=== PATIENT | female | born 1945 | race Caucasian/White ===

== ENCOUNTER 2016-08-22 11:02 | Inpatient (IN) | payer OTHER, MEDICARE ==
[~2016-08-22] VITALS: Ht 170.2 cm; Wt 52.3 kg
[2016-08-22] MEDS ORDERED: ARIP2 PO (11:57)
[2016-08-22] MEDS ORDERED: PRED10 PO (11:57)
[2016-08-22] MEDS ORDERED: ADV250 IH (11:57)
[2016-08-22] MEDS ORDERED: DONE5TAB PO (11:57)
[2016-08-22] MEDS ORDERED: BUSP15 PO (11:57)
[2016-08-22] MEDS ORDERED: FURO20 PO (11:57)
[2016-08-22] MEDS ORDERED: TIOT185 IH (11:57)
[2016-08-22] MEDS ORDERED: MIRT15 PO (11:57)
[2016-08-22] MEDS ORDERED: POTA8CAP17 PO (11:57)
[2016-08-22] MEDS ORDERED: MEMA5 PO ×2 (11:57)
[2016-08-22] MEDS ORDERED: ALBU8HFA4 IH (11:57)
[2016-08-22] MEDS ORDERED: AZIT250T6 PO (11:57)
[2016-08-22] MEDS: ALBUTEROL SULFATE 2.5 MG/0.5 ML NEB SOLUTION NEB ONE ×2 (12:12→12:15)
[2016-08-22] MEDS: IPRATROPIUM BROMIDE 0.5 MG/2.5 ML NEB SOLUTION NEB ONE ×2 (12:12→12:15)
[2016-08-22] MEDS ORDERED: SODIUM CHLORIDE 0.9% 1,000 ML IV ONE ×2 (12:30→13:45)
[2016-08-22] MEDS ORDERED: ACETAMINOPHEN 1000 MG/ISO-OSM 100 ML IV ONE (12:30)
[2016-08-22 12:50] LABS: BASOPHILS % (AUTO) 0.2 % (0.0-2.0); EOSINOPHILS % (AUTO) 0 % (1.0-6.0); LYMPHOCYTES # (AUTO) 0.6 K/uL (1.0-4.8); LYMPHOCYTES % (AUTO) 2.4 % (22.0-44.0); MEAN CORPUSCULAR HEMOGLOBIN 27.9 pg (26.0-34.0); MEAN CORPUSCULAR HGB CONC 32.5 G/dL (31.0-37.0); MEAN CORPUSCULAR VOLUME 86 fL (80-100); MONOCYTES # (AUTO) 1.6 K/uL (0.1-1.0); MONOCYTES % (AUTO) 6.2 % (2.0-9.0); NEUTROPHILS # (AUTO) 24.2 K/uL (1.8-7.7); NEUTROPHILS % (AUTO) 91.2 % (40.0-70.0); PLATELET COUNT (AUTO) 293 K/uL (150-450); RED BLOOD CELL COUNT(AUTO) 4.31 MIL/uL (4.00-5.20); RED CELL DISTRIBUTION WIDTH 14.8 % (11.5-14.5); WHITE BLOOD COUNT (AUTO) 26.6 K/uL (4.5-11.0)
[2016-08-22 12:58] LABS: ANION GAP 11 mmol/L (8-16); CALCIUM, TOTAL 8.2 mg/dL (8.8-10.5); CARBON DIOXIDE 24 mmol/L (22-29); CHLORIDE 100 mmol/L (98-107); CREATININE 0.98 mg/dL (0.60-1.30); GLOMERULAR FILTR. RATE CALC 56 mL/min (>60); POTASSIUM 3.7 mmol/L (3.5-5.1); SODIUM SERUM 135 mmol/L (136-145); UREA NITROGEN, BLOOD 20 mg/dL (7-18)
[2016-08-22 13:09] LABS: B-TYPE NATRIURETIC PEPTIDE 561 pg/mL (0-100)
[2016-08-22 13:27] LABS: ALANINE AMINOTRANSFERASE 25 U/L (12-78); ALBUMIN 2.7 g/dL (3.4-5.0); ASPARTATE AMINOTRANSFERASE 26 U/L (15-37); BILIRUBIN,TOTAL 0.6 mg/dL (0.1-1.0); CREATINE KINASE MB 2.3 ng/mL (0-5); CREATINE KINASE, TOTAL 144 U/L (26-192)
[2016-08-22 13:54] LABS: PROCALCITONIN (PCT) 8.14 ng/mL (<0.50)
[2016-08-22] MEDS ORDERED: PIPERACILLIN/TAZO 3.375 GM/D5W 50 ML IV ONE (14:00)
[2016-08-22] MEDS ORDERED: LEVOFLOXACIN 500 MG/D5% WATER 100 ML IV ONE (14:00)
[2016-08-22 14:20] LABS: INFLUENZA TYPE B NEGATIVE FOR TYPE B (NEGATIVE)
[2016-08-22 14:49] LABS: ADD UA MICROSCOPIC YES; APPEARANCE,URINE CLOUDY (CLEAR); GLUCOSE, URINE (UA) NEGATIVE (NEGATIVE); KETONES,URINE TRACE mg/dL (NEGATIVE); LEUKOCYTE ESTERASE ,URINE SMALL (NEGATIVE); OCCULT BLOOD,URINE NEGATIVE (NEGATIVE); PH,URINE 5.5 (5.0-8.0); PROTEIN,URINE SEE CONFIRM (NEGATIVE)
[2016-08-22 14:55] LABS: SULFOSALICYLIC ACID,URINE 1+ (Negative)
[2016-08-22 14:56] LABS: RBC,URINE 0-2 /HPF (0-2); RENAL EPITHELIAL CELLS,URINE Few /LPF (None Seen); SQUAMOUS EPITHELIAL CELL,UR Few /LPF (None Seen)
[2016-08-22] MEDS ORDERED: ALBUTEROL SULFATE 2.5 MG/0.5 ML NEB SOLUTION NEB PRN (16:15)
[2016-08-22] MEDS ORDERED: OxyCODONE HCL/ACETAMINOPHEN 5-325 MG TABLET PO PRN (16:15)
[2016-08-22] MEDS: CefTRIAXone 1 GM/DEXTROSE 50 ML IV SCH (16:50)
[2016-08-22] MEDS: AZITHROMYCIN 500 MG/NS 250 ML IV SCH (17:18)
[2016-08-22] MEDS: ACETAMINOPHEN 325 MG TABLET PO PRN ×2 (18:55→23:46)
[2016-08-22] MEDS ORDERED: 0.9% SODIUM CHLORIDE 5 ML NEB SOLUTION NEB ONE (20:32)
[2016-08-22 20:34] VITALS: BP 109/74
[2016-08-22] MEDS: ALBUTEROL SULFATE 2.5 MG/0.5 ML NEB SOLUTION NEB SCH (20:35)
[2016-08-22] MEDS: MEMANTINE HCL 5 MG TABLET PO SCH (20:51)
[2016-08-22] MEDS ORDERED: MEMANTINE HCL 5 MG TABLET PO SCH (21:00)
[2016-08-22] MEDS ORDERED: INFLUENZA VIRUS VACCINE QVS 2016-17 (3YR+)/PF 60 MCG/0.5 ML SYRINGE IM ONE (23:30)
[2016-08-22 23:38] VITALS: BP 111/72
[2016-08-22] MEDS: HEPARIN SODIUM,PORCINE 5,000 UNITS/ML VIAL SQ SCH (23:46)
[2016-08-23] MEDS ORDERED: 0.9% SODIUM CHLORIDE 5 ML NEB SOLUTION NEB ONE ×2 (01:37→19:15)
[2016-08-23] MEDS: ALBUTEROL SULFATE 2.5 MG/0.5 ML NEB SOLUTION NEB SCH ×4 (03:02→19:39)
[2016-08-23 04:52] VITALS: BP 99/49
[2016-08-23 08:27] VITALS: BP 115/63
[2016-08-23] MEDS ORDERED: BusPIRone HCL 15 MG TABLET PO SCH (09:00)
[2016-08-23] MEDS ORDERED: DONEPEZIL HCL 5 MG TABLET PO SCH (09:00)
[2016-08-23] MEDS ORDERED: ARIPiprazole 2 MG TABLET PO SCH (09:00)
[2016-08-23] MEDS ORDERED: MIRTAZAPINE 15 MG TABLET PO SCH (09:00)
[2016-08-23] MEDS: BusPIRone HCL 15 MG TABLET PO SCH (09:21)
[2016-08-23] MEDS: MEMANTINE HCL 5 MG TABLET PO SCH ×2 (09:21→21:56)
[2016-08-23] MEDS: HEPARIN SODIUM,PORCINE 5,000 UNITS/ML VIAL SQ SCH ×3 (09:22→23:43)
[2016-08-23] MEDS: MIRTAZAPINE 15 MG TABLET PO SCH (09:22)
[2016-08-23] MEDS: FUROSEMIDE 20 MG TABLET PO SCH (09:22)
[2016-08-23] MEDS: ARIPiprazole 2 MG TABLET PO SCH (09:22)
[2016-08-23] MEDS: DONEPEZIL HCL 5 MG TABLET PO SCH (09:22)
[2016-08-23] MEDS: PANTOPRAZOLE SODIUM 40 MG DR TABLET PO SCH (09:22)
[2016-08-23 11:06] VITALS: BP 102/47
[2016-08-23] MEDS: ACETAMINOPHEN 325 MG TABLET PO PRN (12:25)
[2016-08-23] MEDS: PredniSONE 10 MG TABLET PO SCH (12:25)
[2016-08-23] MEDS ORDERED: SODIUM CHLORIDE 0.9% 500 ML IV ONE (15:36)
[2016-08-23] MEDS: AZITHROMYCIN 500 MG/NS 250 ML IV SCH (15:44)
[2016-08-23 15:45] VITALS: BP 116/65
[2016-08-23] MEDS: CefTRIAXone 1 GM/DEXTROSE 50 ML IV SCH (17:09)
[2016-08-23 19:58] VITALS: BP 103/59
[2016-08-23] MEDS ORDERED: SODIUM CHLORIDE 0.9% 100 ML ONE (20:05)
[2016-08-23] MEDS ORDERED: IOVERSOL 350 MG/ML 100 ML VIAL ONE (20:05)
[2016-08-24 00:38] VITALS: BP 110/59
[2016-08-24] MEDS ORDERED: 0.9% SODIUM CHLORIDE 5 ML NEB SOLUTION NEB ONE (02:10)
[2016-08-24] MEDS: ALBUTEROL SULFATE 2.5 MG/0.5 ML NEB SOLUTION NEB SCH (02:15)
[2016-08-24 05:03] VITALS: BP 112/55
[2016-08-24 06:44] LABS: BASOPHILS % (AUTO) 0.1 % (0.0-2.0); EOSINOPHILS % (AUTO) 0.1 % (1.0-6.0); HEMATOCRIT 31.5 % (36-46); HEMOGLOBIN 10.1 g/dL (12.0-16.0); LYMPHOCYTES # (AUTO) 0.6 K/uL (1.0-4.8); LYMPHOCYTES % (AUTO) 3.5 % (22.0-44.0); MEAN CORPUSCULAR HEMOGLOBIN 27.8 pg (26.0-34.0); MEAN CORPUSCULAR HGB CONC 32.1 G/dL (31.0-37.0); MEAN CORPUSCULAR VOLUME 87 fL (80-100); MONOCYTES # (AUTO) 0.8 K/uL (0.1-1.0); MONOCYTES % (AUTO) 4.5 % (2.0-9.0); NEUTROPHILS # (AUTO) 16.5 K/uL (1.8-7.7); PLATELET COUNT (AUTO) 277 K/uL (150-450); RED BLOOD CELL COUNT(AUTO) 3.64 MIL/uL (4.00-5.20); RED CELL DISTRIBUTION WIDTH 15.2 % (11.5-14.5)
[2016-08-24 07:09] LABS: ALANINE AMINOTRANSFERASE 24 U/L (12-78); ANION GAP 8 mmol/L (8-16); ASPARTATE AMINOTRANSFERASE 28 U/L (15-37); BILIRUBIN,TOTAL 0.4 mg/dL (0.1-1.0); CALCIUM, TOTAL 8.2 mg/dL (8.8-10.5); CARBON DIOXIDE 25 mmol/L (22-29); CHLORIDE 103 mmol/L (98-107); CREATININE 0.76 mg/dL (0.60-1.30); GLOMERULAR FILTR. RATE CALC > 60 mL/min (>60); POTASSIUM 3.3 mmol/L (3.5-5.1); SODIUM SERUM 136 mmol/L (136-145); TOTAL PROTEIN, SERUM 6.1 g/dL (6.4-8.2); UREA NITROGEN, BLOOD 22 mg/dL (7-18)
[2016-08-24 07:18] LABS: NEUTROPHILS % (AUTO) 91.8 % (40.0-70.0); RBC MORPHOLOGY COMMENT NORMAL RBC MORPH
[2016-08-24 07:53] VITALS: BP 115/60
[2016-08-24] MEDS: HEPARIN SODIUM,PORCINE 5,000 UNITS/ML VIAL SQ SCH ×2 (09:33→18:08)
[2016-08-24] MEDS: ARIPiprazole 2 MG TABLET PO SCH (09:33)
[2016-08-24] MEDS: PredniSONE 10 MG TABLET PO SCH (09:34)
[2016-08-24] MEDS: FUROSEMIDE 20 MG TABLET PO SCH (09:34)
[2016-08-24] MEDS: PANTOPRAZOLE SODIUM 40 MG DR TABLET PO SCH (09:34)
[2016-08-24] MEDS: MEMANTINE HCL 5 MG TABLET PO SCH ×2 (09:34→20:48)
[2016-08-24] MEDS: BusPIRone HCL 15 MG TABLET PO SCH (09:34)
[2016-08-24] MEDS: DONEPEZIL HCL 5 MG TABLET PO SCH (09:34)
[2016-08-24] MEDS: MIRTAZAPINE 15 MG TABLET PO SCH (09:35)
[2016-08-24 11:15] VITALS: BP 116/71
[2016-08-24] MEDS: DOCUSATE SODIUM 100 MG CAPSULE PO SCH ×3 (12:00→20:54)
[2016-08-24] MEDS ORDERED: DOCUSATE SODIUM/BENZOCAINE 283-20MG/5 ML MINI-ENEMA PR ONE (12:00)
[2016-08-24] MEDS ORDERED: DOCUSATE SODIUM/BENZOCAINE 283-20MG/5 ML MINI-ENEMA PR PRN (12:00)
[2016-08-24] MEDS ORDERED: SODIUM CHLORIDE 0.9% 500 ML IV ONE (15:33)
[2016-08-24] MEDS: POTASSIUM CHL 10 MEQ/WATER 50 ML IV PRN ×2 (16:02→18:07)
[2016-08-24] MEDS: CefTRIAXone 1 GM/DEXTROSE 50 ML IV SCH (16:38)
[2016-08-24] MEDS: AZITHROMYCIN 500 MG/NS 250 ML IV SCH (16:39)
[2016-08-24 19:53] VITALS: BP 106/67
[2016-08-24] MEDS: ACETAMINOPHEN 325 MG TABLET PO PRN (20:48)
[2016-08-24 23:06] VITALS: BP 120/52
[2016-08-25] MEDS: HEPARIN SODIUM,PORCINE 5,000 UNITS/ML VIAL SQ SCH ×3 (00:48→16:45)
[2016-08-25] MEDS: POTASSIUM CHL 10 MEQ/WATER 50 ML IV PRN (00:53)
[2016-08-25] MEDS ORDERED: 0.9% SODIUM CHLORIDE 5 ML NEB SOLUTION NEB ONE ×4 (02:25→19:24)
[2016-08-25] MEDS: ALBUTEROL SULFATE 2.5 MG/0.5 ML NEB SOLUTION NEB SCH ×4 (02:38→19:24)
[2016-08-25 03:35] VITALS: BP 119/61
[2016-08-25 06:23] LABS: BASOPHILS % (AUTO) 0.4 % (0.0-2.0); EOSINOPHILS % (AUTO) 0.7 % (1.0-6.0); HEMATOCRIT 32.7 % (36-46); HEMOGLOBIN 10.4 g/dL (12.0-16.0); LYMPHOCYTES # (AUTO) 0.7 K/uL (1.0-4.8); LYMPHOCYTES % (AUTO) 4.2 % (22.0-44.0); MEAN CORPUSCULAR HEMOGLOBIN 27.5 pg (26.0-34.0); MEAN CORPUSCULAR HGB CONC 31.7 G/dL (31.0-37.0); MEAN CORPUSCULAR VOLUME 87 fL (80-100); MONOCYTES # (AUTO) 0.7 K/uL (0.1-1.0); MONOCYTES % (AUTO) 4.5 % (2.0-9.0); NEUTROPHILS # (AUTO) 15.1 K/uL (1.8-7.7); PLATELET COUNT (AUTO) 281 K/uL (150-450); RED BLOOD CELL COUNT(AUTO) 3.77 MIL/uL (4.00-5.20); RED CELL DISTRIBUTION WIDTH 15.1 % (11.5-14.5); WHITE BLOOD COUNT (AUTO) 16.8 K/uL (4.5-11.0)
[2016-08-25 06:38] LABS: NEUTROPHILS % (AUTO) 90.2 % (40.0-70.0)
[2016-08-25 07:07] LABS: ALANINE AMINOTRANSFERASE 24 U/L (12-78); ALBUMIN 1.9 g/dL (3.4-5.0); ANION GAP 8 mmol/L (8-16); ASPARTATE AMINOTRANSFERASE 26 U/L (15-37); BILIRUBIN,TOTAL 0.4 mg/dL (0.1-1.0); CALCIUM, TOTAL 8.2 mg/dL (8.8-10.5); CARBON DIOXIDE 26 mmol/L (22-29); CHLORIDE 106 mmol/L (98-107); CREATININE 0.65 mg/dL (0.60-1.30); GLOMERULAR FILTR. RATE CALC > 60 mL/min (>60); SODIUM SERUM 140 mmol/L (136-145); TOTAL PROTEIN, SERUM 6.1 g/dL (6.4-8.2); UREA NITROGEN, BLOOD 21 mg/dL (7-18)
[2016-08-25 07:12] VITALS: BP 143/76
[2016-08-25 07:45] LABS: RBC MORPHOLOGY COMMENT NORMAL RBC MORPH
[2016-08-25] MEDS: PANTOPRAZOLE SODIUM 40 MG DR TABLET PO SCH (08:33)
[2016-08-25] MEDS: MEMANTINE HCL 5 MG TABLET PO SCH ×2 (08:33→22:22)
[2016-08-25] MEDS: ARIPiprazole 2 MG TABLET PO SCH (08:33)
[2016-08-25] MEDS: MIRTAZAPINE 15 MG TABLET PO SCH (08:33)
[2016-08-25] MEDS: BusPIRone HCL 15 MG TABLET PO SCH (08:33)
[2016-08-25] MEDS: PredniSONE 10 MG TABLET PO SCH (08:34)
[2016-08-25] MEDS: DOCUSATE SODIUM 100 MG CAPSULE PO SCH ×2 (08:34→22:22)
[2016-08-25] MEDS: FUROSEMIDE 20 MG TABLET PO SCH (08:34)
[2016-08-25] MEDS: DONEPEZIL HCL 5 MG TABLET PO SCH (08:34)
[2016-08-25 15:36] VITALS: BP 123/60
[2016-08-25] MEDS: CefTRIAXone 1 GM/DEXTROSE 50 ML IV SCH (16:34)
[2016-08-25] MEDS: AZITHROMYCIN 500 MG/NS 250 ML IV SCH (17:19)
[2016-08-25 20:00] VITALS: BP 98/61
[2016-08-25 23:17] VITALS: BP 140/85
[2016-08-26] MEDS: HEPARIN SODIUM,PORCINE 5,000 UNITS/ML VIAL SQ SCH ×3 (01:12→16:30)
[2016-08-26] MEDS ORDERED: 0.9% SODIUM CHLORIDE 5 ML NEB SOLUTION NEB ONE ×3 (02:17→19:42)
[2016-08-26] MEDS: ALBUTEROL SULFATE 2.5 MG/0.5 ML NEB SOLUTION NEB SCH ×4 (02:34→19:52)
[2016-08-26 04:39] VITALS: BP 109/72
[2016-08-26 07:04] LABS: EOSINOPHILS % (AUTO) 0.4 % (1.0-6.0); HEMATOCRIT 33.2 % (36-46); HEMOGLOBIN 10.6 g/dL (12.0-16.0); LYMPHOCYTES # (AUTO) 0.8 K/uL (1.0-4.8); LYMPHOCYTES % (AUTO) 4.7 % (22.0-44.0); MEAN CORPUSCULAR HEMOGLOBIN 27.7 pg (26.0-34.0); MEAN CORPUSCULAR HGB CONC 31.9 G/dL (31.0-37.0); MEAN CORPUSCULAR VOLUME 87 fL (80-100); MONOCYTES # (AUTO) 1.2 K/uL (0.1-1.0); MONOCYTES % (AUTO) 6.9 % (2.0-9.0); NEUTROPHILS # (AUTO) 15.5 K/uL (1.8-7.7); PLATELET COUNT (AUTO) 326 K/uL (150-450); RBC MORPHOLOGY COMMENT NORMAL RBC MORPH; RED BLOOD CELL COUNT(AUTO) 3.82 MIL/uL (4.00-5.20); RED CELL DISTRIBUTION WIDTH 15.7 % (11.5-14.5); WHITE BLOOD COUNT (AUTO) 17.6 K/uL (4.5-11.0)
[2016-08-26 07:15] VITALS: BP 130/73
[2016-08-26 07:24] LABS: ALANINE AMINOTRANSFERASE 26 U/L (12-78); ALBUMIN 1.9 g/dL (3.4-5.0); ANION GAP 7 mmol/L (8-16); ASPARTATE AMINOTRANSFERASE 26 U/L (15-37); BILIRUBIN,TOTAL 0.3 mg/dL (0.1-1.0); CALCIUM, TOTAL 8.3 mg/dL (8.8-10.5); CARBON DIOXIDE 28 mmol/L (22-29); CHLORIDE 106 mmol/L (98-107); GLOMERULAR FILTR. RATE CALC > 60 mL/min (>60); POTASSIUM 3.9 mmol/L (3.5-5.1); SODIUM SERUM 141 mmol/L (136-145); THYROID STIMULATING HORMONE 5.16 uIU/mL (0.36-3.74); TOTAL PROTEIN, SERUM 6.2 g/dL (6.4-8.2); UREA NITROGEN, BLOOD 20 mg/dL (7-18)
[2016-08-26] MEDS: PANTOPRAZOLE SODIUM 40 MG DR TABLET PO SCH (08:43)
[2016-08-26] MEDS: DOCUSATE SODIUM 100 MG CAPSULE PO SCH ×2 (08:43→21:00)
[2016-08-26] MEDS: ARIPiprazole 2 MG TABLET PO SCH (08:43)
[2016-08-26] MEDS: FUROSEMIDE 20 MG TABLET PO SCH (08:43)
[2016-08-26] MEDS: BusPIRone HCL 15 MG TABLET PO SCH (08:44)
[2016-08-26] MEDS: DONEPEZIL HCL 5 MG TABLET PO SCH (08:44)
[2016-08-26] MEDS: MEMANTINE HCL 5 MG TABLET PO SCH ×2 (08:44→21:00)
[2016-08-26] MEDS: PredniSONE 10 MG TABLET PO SCH (08:44)
[2016-08-26] MEDS: MIRTAZAPINE 15 MG TABLET PO SCH (08:54)
[2016-08-26 12:02] VITALS: BP 104/60
[2016-08-26 15:30] VITALS: BP 103/69
[2016-08-26] MEDS: CefTRIAXone 1 GM/DEXTROSE 50 ML IV SCH (16:30)
[2016-08-26] MEDS: AZITHROMYCIN 500 MG/NS 250 ML IV SCH (17:00)
[2016-08-26] MEDS ORDERED: MORPHINE SULFATE 4 MG/ML SYRINGE IVP PRN (18:15)
[2016-08-26] MEDS: MORPHINE SULFATE 2 MG/ML SYRINGE IVP PRN ×2 (18:34→21:25)
[2016-08-26 19:05] VITALS: BP 94/62
[2016-08-26 23:20] VITALS: BP 119/72
[2016-08-27] MEDS ORDERED: 0.9% SODIUM CHLORIDE 5 ML NEB SOLUTION NEB ONE ×3 (01:28→14:26)
[2016-08-27] MEDS: ALBUTEROL SULFATE 2.5 MG/0.5 ML NEB SOLUTION NEB SCH ×4 (01:41→20:00)
[2016-08-27 04:05] VITALS: BP 121/63
[2016-08-27 06:02] LABS: BASOPHILS # (AUTO) 0.05 K/uL (0.00-0.20); BASOPHILS % (AUTO) 0.3 % (0.0-2.0); EOSINOPHILS % (AUTO) 1.81 % (1.0-6.0); HEMATOCRIT 30.9 % (36-46); HEMOGLOBIN 10.2 g/dL (12.0-16.0); LYMPHOCYTES % (AUTO) 5.8 % (22.0-44.0); MEAN CORPUSCULAR HEMOGLOBIN 28.3 pg (26.0-34.0); MEAN CORPUSCULAR VOLUME 86 fL (80-100); MONOCYTES # (AUTO) 1.1 K/uL (0.1-1.0); MONOCYTES % (AUTO) 6.7 % (2.0-9.0); NEUTROPHILS # (AUTO) 14.2 K/uL (1.8-7.7); PLATELET COUNT (AUTO) 331 K/uL (150-450); RED CELL DISTRIBUTION WIDTH 15.4 % (11.5-14.5); WHITE BLOOD COUNT (AUTO) 16.6 K/uL (4.5-11.0)
[2016-08-27 06:42] LABS: ALANINE AMINOTRANSFERASE 27 U/L (12-78); ALBUMIN 1.8 g/dL (3.4-5.0); ANION GAP 7 mmol/L (8-16); ASPARTATE AMINOTRANSFERASE 27 U/L (15-37); BILIRUBIN,TOTAL 0.3 mg/dL (0.1-1.0); CALCIUM, TOTAL 7.9 mg/dL (8.8-10.5); CARBON DIOXIDE 30 mmol/L (22-29); CHLORIDE 106 mmol/L (98-107); CREATININE 0.56 mg/dL (0.60-1.30); GLOMERULAR FILTR. RATE CALC > 60 mL/min (>60); POTASSIUM 4.1 mmol/L (3.5-5.1); SODIUM SERUM 143 mmol/L (136-145); TOTAL PROTEIN, SERUM 5.2 g/dL (6.4-8.2); UREA NITROGEN, BLOOD 18 mg/dL (7-18)
[2016-08-27 07:24] LABS: NEUTROPHILS % (AUTO) 85.4 % (40.0-70.0)
[2016-08-27 07:32] VITALS: BP 113/77
[2016-08-27] MEDS: MIRTAZAPINE 15 MG TABLET PO SCH (08:28)
[2016-08-27] MEDS: FUROSEMIDE 20 MG TABLET PO SCH (08:40)
[2016-08-27] MEDS: MEMANTINE HCL 5 MG TABLET PO SCH ×2 (08:40→21:00)
[2016-08-27] MEDS: PredniSONE 10 MG TABLET PO SCH (08:40)
[2016-08-27] MEDS: ARIPiprazole 2 MG TABLET PO SCH (08:40)
[2016-08-27] MEDS: BusPIRone HCL 15 MG TABLET PO SCH (08:40)
[2016-08-27] MEDS: DONEPEZIL HCL 5 MG TABLET PO SCH (08:40)
[2016-08-27] MEDS: DOCUSATE SODIUM 100 MG CAPSULE PO SCH ×2 (08:40→21:00)
[2016-08-27] MEDS: HEPARIN SODIUM,PORCINE 5,000 UNITS/ML VIAL SQ SCH ×3 (08:41→16:00)
[2016-08-27] MEDS: PANTOPRAZOLE SODIUM 40 MG DR TABLET PO SCH (08:41)
[2016-08-27] MEDS: MORPHINE SULFATE 2 MG/ML SYRINGE IVP PRN ×5 (10:42→23:59)
[2016-08-27 11:44] VITALS: BP 125/70
[2016-08-27] MEDS: LORazepam 2 MG/ML VIAL IVP PRN ×5 (12:20→22:38)
[2016-08-27] MEDS: AZITHROMYCIN 500 MG/NS 250 ML IV SCH (17:00)
[2016-08-27] MEDS: CefTRIAXone 1 GM/DEXTROSE 50 ML IV SCH (17:00)
[2016-08-27 19:50] VITALS: BP 107/60
[2016-08-27 23:25] VITALS: BP 111/63
[2016-08-28] MEDS: ALBUTEROL SULFATE 2.5 MG/0.5 ML NEB SOLUTION NEB SCH ×3 (02:00→14:00)
[2016-08-28] MEDS: LORazepam 2 MG/ML VIAL IVP PRN ×3 (02:14→09:12)
[2016-08-28 04:38] VITALS: BP 122/71
[2016-08-28] MEDS: ARIPiprazole 2 MG TABLET PO SCH (07:26)
[2016-08-28] MEDS: FUROSEMIDE 20 MG TABLET PO SCH (07:26)
[2016-08-28] MEDS: BusPIRone HCL 15 MG TABLET PO SCH (07:26)
[2016-08-28] MEDS: DONEPEZIL HCL 5 MG TABLET PO SCH (07:26)
[2016-08-28] MEDS: DOCUSATE SODIUM 100 MG CAPSULE PO SCH (07:26)
[2016-08-28] MEDS: PredniSONE 10 MG TABLET PO SCH (07:26)
[2016-08-28] MEDS: PANTOPRAZOLE SODIUM 40 MG DR TABLET PO SCH (07:27)
[2016-08-28] MEDS: HEPARIN SODIUM,PORCINE 5,000 UNITS/ML VIAL SQ SCH ×2 (07:27)
[2016-08-28] MEDS: MEMANTINE HCL 5 MG TABLET PO SCH (07:27)
[2016-08-28] MEDS: MIRTAZAPINE 15 MG TABLET PO SCH (07:27)
[2016-08-28 08:10] VITALS: BP 146/68
[2016-08-28] MEDS: MORPHINE SULFATE 2 MG/ML SYRINGE IVP PRN (09:12)
== END 2016-08-28 13:35 | disposition expired | DRG 871 ==
LOC: EMS 11:03 → 6N 18:51 → EMS 19:58
PROVIDERS: ADMIT Hospitalist; ATTEND Hospitalist
DX: A41.9 Sepsis, unspecified organism (principal); E43 Unspecified severe protein-calorie malnutrition; J69.0 Pneumonitis due to inhalation of food and vomit; J96.21 Acute and chronic respiratory failure with hypoxia; C78.00 Secondary malignant neoplasm of unspecified lung; N39.0 Urinary tract infection, site not specified; J44.9 Chronic obstructive pulmonary disease, unspecified; F03.90 Unspecified dementia, unspecified severity, without behavioral disturbance, psychotic disturbance, mood disturbance, and anxiety; I46.9 Cardiac arrest, cause unspecified; Z66 Do not resuscitate; Z51.5 Encounter for palliative care; F32.9 Major depressive disorder, single episode, unspecified; E88.09 Other disorders of plasma-protein metabolism, not elsewhere classified; Z88.2 Allergy status to sulfonamides; Z90.12 Acquired absence of left breast and nipple; Z79.899 Other long term (current) drug therapy; Z91.81 History of falling; Z85.850 Personal history of malignant neoplasm of thyroid; Z85.3 Personal history of malignant neoplasm of breast; Z28.21 Immunization not carried out because of patient refusal
CPT/HCPCS: 51702; 71260; 72193; 74160; 83605; 84145; 84443; 87040; 87804; 92526; 92610; 93005; 94640; 94799; 96365; 96367; 99291; J0131; J0456; J0696; J1644; J1956; J2060; J2270; J2543; J3480; J7030; J7040; J7050